=== PATIENT | male | born 1965 | race Caucasian/White ===

== ENCOUNTER → 2020-03-18 | Outpatient (CLI) | payer OTHER ==
[2020-03-19 06:04] LABS: RUBELLA AB IGG-REFLAB 8.75 index (Immune >0.99); RUBEOLA (MEASLES) IGG 79.6 AU/mL (Immune >16.4)
== END | disposition home or self-care (01) ==
LOC: LABPV 10:10
PROVIDERS: ATTEND Internal Medicine
DX: Z02.1 Encounter for pre-employment examination (principal)
CPT/HCPCS: 86706; 86735; 86762; 86765; 86787

== ENCOUNTER 2020-08-14 15:06 | Emergency (ER) | payer OTHER ==
[~2020-08-14] VITALS: Ht 170.2 cm; Wt 84.1 kg
[2020-08-14 17:50] VITALS: BP 143/98
[2020-08-14] MEDS ORDERED: IBUPROFEN 800 MG TABLET PO ONE (18:00)
== END 2020-08-14 18:18 | disposition home or self-care (01) ==
LOC: EMS 15:08
DX: S10.93XA Contusion of unspecified part of neck, initial encounter (principal); R51.9 Headache, unspecified; M54.9 Dorsalgia, unspecified; Y04.0XXA Assault by unarmed brawl or fight, initial encounter; Y93.89 Activity, other specified; Y92.89 Other specified places as the place of occurrence of the external cause; Y99.0 Civilian activity done for income or pay
CPT/HCPCS: 99282; Z7502; Z7610

== ENCOUNTER 2020-12-30 13:14 | Emergency (ER) | payer OTHER ==
[~2020-12-30] VITALS: Ht 170.2 cm; Wt 86.3 kg
[2020-12-30] MEDS ORDERED: PERTUSS(ACELL),DIPH,TET VAC/PF 0.5 ML SYRINGE IM. ONE (15:15)
[2020-12-30] MEDS ORDERED: BACITRACIN 0.9 GM PACKET OINTMENT TP ONE (15:15)
[2020-12-30 16:25] VITALS: BP 135/86
== END 2020-12-30 16:51 | disposition home or self-care (01) ==
LOC: EMS 13:14
DX: S50.811A Abrasion of right forearm, initial encounter (principal); S60.511A Abrasion of right hand, initial encounter; W50.3XXA Accidental bite by another person, initial encounter; Y93.89 Activity, other specified; Y92.89 Other specified places as the place of occurrence of the external cause; Y99.8 Other external cause status
CPT/HCPCS: 90471; 90715; 99283

== ENCOUNTER 2022-09-18 16:45 | Emergency (ER) | payer OTHER ==
[~2022-09-18] VITALS: Ht 170.2 cm; Wt 84.1 kg
[2022-09-18 16:47] VITALS: TEMP 98.3
[2022-09-18] MEDS ORDERED: KETOROLAC TROMETHAMINE 30 MG/ML VIAL IM ONE (18:15)
[2022-09-18 21:05] VITALS: BP 136/85; PULSE 89; RESP 16
== END 2022-09-18 21:05 | disposition home or self-care (01) ==
LOC: EMS 16:50
DX: S50.01XA Contusion of right elbow, initial encounter (principal); M62.830 Muscle spasm of back; M25.531 Pain in right wrist; M25.562 Pain in left knee; Y08.89XA Assault by other specified means, initial encounter; Y93.89 Activity, other specified; Y92.89 Other specified places as the place of occurrence of the external cause; Y99.8 Other external cause status
CPT/HCPCS: 99284; 73080; 73110; 73562; 96372; J1885

== ENCOUNTER 2023-01-16 15:26 | Emergency (ER) | payer OTHER ==
[~2023-01-16] VITALS: Ht 170.2 cm; Wt 81.8 kg
[2023-01-16 15:32] VITALS: TEMP 98.2
[2023-01-16] MEDS ORDERED: LIDOCAINE 5% TRANSDERMAL PATCH TD ONE (16:30)
[2023-01-16 18:02] VITALS: BP 141/93; PULSE 87; RESP 14
[2023-01-16 18:02] LABS: BASOPHILS % (AUTO) 0.9 % (0.0-2.0); EOSINOPHILS % (AUTO) 0.6 % (1.0-6.0); HEMATOCRIT 46.1 % (41-53); HEMOGLOBIN 15.7 g/dL (13.5-17.5); LYMPHOCYTES # (AUTO) 1.5 K/uL (1.0-4.8); LYMPHOCYTES % (AUTO) 15.6 % (22.0-44.0); MEAN CORPUSCULAR HEMOGLOBIN 29.6 pg (26.0-34.0); MEAN CORPUSCULAR VOLUME 87 fL (80-100); MONOCYTES # (AUTO) 0.5 K/uL (0.1-1.0); MONOCYTES % (AUTO) 5.3 % (2.0-9.0); NEUTROPHILS # (AUTO) 7.5 K/uL (1.8-7.7); NEUTROPHILS % (AUTO) 77.6 % (40.0-70.0); PLATELET COUNT (AUTO) 284 K/uL (150-450); RED CELL DISTRIBUTION WIDTH 13.4 % (11.5-14.5); WHITE BLOOD COUNT (AUTO) 9.6 K/uL (4.5-11.0)
[2023-01-16 18:19] LABS: ANION GAP 9 mmol/L (8-16); CALCIUM, TOTAL 9.3 mg/dL (8.8-10.5); CARBON DIOXIDE 31 mmol/L (22-29); CHLORIDE 102 mmol/L (98-107); CREATININE 0.99 mg/dL (0.60-1.30); GLOMERULAR FILTR. RATE CALC > 60 mL/min (>60); GLUCOSE,RANDOM 95 mg/dL (70-110); POTASSIUM 3.7 mmol/L (3.5-5.1); SODIUM SERUM 142 mmol/L (136-145); UREA NITROGEN, BLOOD 23 mg/dL (7-18)
[2023-01-16 18:25] LABS: ALANINE AMINOTRANSFERASE 37 U/L (12-78); ALBUMIN 4.1 g/dL (3.4-5.0); ALKALINE PHOSPHATASE 103 U/L (46-116); ASPARTATE AMINOTRANSFERASE 22 U/L (15-37); BILIRUBIN,TOTAL 0.4 mg/dL (0.1-1.0); TOTAL PROTEIN, SERUM 8.2 g/dL (6.4-8.2)
[2023-01-16] MEDS ORDERED: HYDR-4723 PO ×2 (18:27→20:56)
[2023-01-16] MEDS ORDERED: BACITRACIN 0.9 GM PACKET OINTMENT TP ONE (18:45)
[2023-01-16] MEDS ORDERED: IBUP-1506 PO (20:14)
[2023-01-16] MEDS ORDERED: AMOX1TAB16 PO ×3 (20:14→20:56)
[2023-01-17 09:07] LABS: HEPATITIS C AB (EIA) Non Reactive (Non Reactive); HIV 1-2 SCREEN 4TH GEN W/RFLX Non Reactive (Non Reactive)
== END 2023-01-16 18:40 | disposition home or self-care (01) ==
LOC: EMS 15:27
DX: S51.852A Open bite of left forearm, initial encounter (principal); Y04.1XXA Assault by human bite, initial encounter; Y93.89 Activity, other specified; Y92.89 Other specified places as the place of occurrence of the external cause; Y99.8 Other external cause status
CPT/HCPCS: 70450; 72125; 72131; 80053; 85025; 86706; 86803; 87340; 87389; 99284

== ENCOUNTER 2023-11-28 11:34 | Emergency (ER) | payer OTHER ==
[~2023-11-28] VITALS: Ht 170.2 cm; Wt 86.4 kg
[~2023-11-28 11:34] MED LIST: AMOX-457 PO; HYDR-4062 PO; IBUP-1506 PO
[2023-11-28 11:42] VITALS: BP 136/97; PULSE 106; RESP 16; TEMP 98.5; O2SAT 98
[2023-11-28] MEDS: LIDOCAINE 5% TRANSDERMAL PATCH TD ONE (14:01)
== END 2023-11-28 14:31 | disposition home or self-care (01) ==
LOC: EMS 11:34
DX: S06.0XAA Concussion with loss of consciousness status unknown, initial encounter (principal); R45.1 Restlessness and agitation; M79.18 Myalgia, other site; Y04.8XXA Assault by other bodily force, initial encounter; Y93.89 Activity, other specified; Y92.89 Other specified places as the place of occurrence of the external cause; Y99.0 Civilian activity done for income or pay
CPT/HCPCS: 99283

== ENCOUNTER 2023-12-03 09:21 | Emergency (ER) | payer OTHER ==
[~2023-12-03] VITALS: Ht 170.2 cm; Wt 86.4 kg
[2023-12-03 09:25] VITALS: BP 119/96; PULSE 96; RESP 18; TEMP 98.6; O2SAT 96
[2023-12-03] MEDS ORDERED: MELO-108 PO (09:51)
[2023-12-03] MEDS ORDERED: FLUT1BLS9 IH (09:51)
== END 2023-12-03 10:10 | disposition home or self-care (01) ==
LOC: EMS 09:21
DX: S06.0X0A Concussion without loss of consciousness, initial encounter (principal); Z79.1 Long term (current) use of non-steroidal anti-inflammatories (NSAID); Z79.51 Long term (current) use of inhaled steroids; Y04.8XXA Assault by other bodily force, initial encounter; Y93.89 Activity, other specified; Y92.89 Other specified places as the place of occurrence of the external cause; Y99.0 Civilian activity done for income or pay
CPT/HCPCS: 99281; Z7502